=== PATIENT | male | born 1940 | race Two or more races ===

== ENCOUNTER 2019-03-11 08:50 | Inpatient (IN) | payer MEDICARE, OTHER ==
[2019-03-11] VITALS (24 sets, daily range): BP systolic 79–136; BP diastolic 45–67
[~2019-03-11] VITALS: Ht 162.6 cm; Wt 66.9 kg
[2019-03-11 09:52] LABS: Basophils # (auto) 0.1 uL; Basophils % (auto) 0.6 % (0.0-2.0); Eosinophils # (auto) 0 uL; Eosinophils % (auto) 0.2 % (0.0-7.0); Hematocrit 40.2 % (41.0-53.0); Hemoglobin 13.8 g/dL (13.5-17.5); Lymphocytes # (auto) 1.6 uL; Lymphocytes % (auto) 15.3 % (10.0-50.0); Mean Corpuscular Hemoglobin 31.9 pg (28.0-32.0); Mean Corpuscular Hgb Conc. 34.3 g/dL (32.0-36.0); Monocytes # (auto) 0.8 uL; Monocytes % (auto) 7.1 % (0.0-12.0); Neutrophils # (auto) 8.2 uL; Neutrophils % (auto) 76.8 % (37.0-80.0); Nucleated Red Blood Cells % 0.1 %; Platelet Count (auto) 176 10^3/uL (140-450); Red Blood Cells 4.32 10^6/uL (4.5-5.90); Red Cell Distribution Width 15.7 % (11.8-14.3); White Blood Cell 10.6 10^3/uL (4.4-10.8)
[2019-03-11 10:11] LABS: BUN/Creatinine Ratio 15.5; Calcium 8.9 mg/dL (8.5-10.1)
[2019-03-11 10:15] LABS: Bilirubin, Total 2.6 mg/dL (0.2-1.0); Total Protein 8.9 g/dL (6.4-8.2)
[2019-03-11 10:48] LABS: INR 1.02 (0.9-1.15); Partial Thromboplastin Time 28.4 sec (23.64-32.05)
[2019-03-11] MEDS ORDERED: ASPirin 81 mg TAB PO ONE (12:15)
[2019-03-11] MEDS ORDERED: ENOXAPARIN SOD 80 MG/0.8ML SYRINGE SC ONE (12:15)
[2019-03-11] MEDS ORDERED: cefTRIAXone 1GM/50ML D5W 50 ML IV ONE (13:30)
[2019-03-11 14:07] LABS: Lactic Acid w/Reflex 2.4 mmol/L (0.4-2.0)
[2019-03-11] MEDS ORDERED: ONDANSETRON HCL 4 MG/2 ML VIAL IV PRN (14:15)
[2019-03-11] MEDS ORDERED: MORPHINE SULF INJ 2 MG/ML SYRINGE 1ML IV PRN (14:15)
[2019-03-11] MEDS ORDERED: HYDROcodone-ACET 5/325MG TAB PO PRN (14:15)
[2019-03-11] MEDS ORDERED: ACETAMINOPHEN 500 MG TAB PO PRN (14:15)
[2019-03-11] MEDS ORDERED: NITROGLYCERIN 0.4 MG SL TAB SL PRN (14:15)
[2019-03-11] MEDS ORDERED: MORPHINE SULF INJ 2 MG/ML SYRINGE 1ML IV ONE (14:15)
[2019-03-11] MEDS ORDERED: DEXTROSE (50%) 50ML SYRG IV PRN ×2 (14:15)
[2019-03-11 14:34] LABS: CRP High Sensitivity 10.2 mg/dL (< 0.3)
[2019-03-11] MEDS ORDERED: ETOMIDATE (2MG/ML) 20ML VIAL IV ONE ×2 (15:04→15:30)
[2019-03-11] MEDS ORDERED: SUCCINYLCHOLINE CHLORIDE 20 MG/ML 10ML VIAL IV ONE ×2 (15:04→15:30)
[2019-03-11] MEDS ORDERED: MIDAZOLAM DRIP 50 mg/50mL 50 ML IV ONE (15:05)
[2019-03-11] MEDS: MIDAZOLAM DRIP 50 mg/50mL 50 ML IV SCH ×2 (15:20→22:58)
[2019-03-11] MEDS: fentaNYL Drip 2500mCg/250mlNS 250 ML IV SCH (15:21)
[2019-03-11] MEDS: PROPOFOL 100 ML IV SCH (15:21)
[2019-03-11] MEDS ORDERED: SODIUM CHLORIDE 0.9% 2,000 ML IV ONE (15:30)
[2019-03-11] MEDS ORDERED: InsuLIN REG 1unit/0.01ml Soln (100units/ml) SC SCH (17:00)
[2019-03-11] MEDS ORDERED: ACCU-CHEK COMFORT CURVE STRIP VI SCH (17:00)
[2019-03-11] MEDS: PIPERACILLIN-TAZOB 3.375GM 100 ML IV SCH (18:00)
[2019-03-11] MEDS: InsuLIN REG 1unit/0.01ml Soln (100units/ml) SC SCH ×2 (18:01→22:00)
[2019-03-11] MEDS: ACCU-CHEK COMFORT CURVE STRIP VI SCH ×2 (18:08→22:00)
[2019-03-11] MEDS: ALBUTEROL SULF 2.5 MG/0.5ML(0.5%) NEB SOLN NEB SCH ×2 (18:20→22:04)
[2019-03-11] MEDS: IPRATROPIUM BROM 0.5 MG/2.5ML INH SOL NEB SCH ×2 (18:20→22:04)
--- NOTE | 2019-03-11 18:35 | NUR ---
Admit to ICU from ER on vent MARIANNE SOTO admitted to ICU via gurney on monitoring coordinator, intubated and being bagged by Respiratory Therapist. Patient transferred to bed, connected to mechanical ventilator by therapist, RJ at bedside. Patient connected to ICU monitoring, weighed by bedscale, oriented to Daniela Jackman primary RN, unit, ventilator and sedation.
--- NOTE | 2019-03-11 18:40 | NUR ---
UNPLANNED LEFT UPPER CHEST CENTRAL LINE D/C. MANUAL PRESSURE HELD. VITALS STABLE. NO SIGNS OF DISTRESS. VERSED GTT PLACEDD ON PERIPHERAL LINE. MONTY MAZARIEGOS NOTIFIED OF EVENT. MD WILL ROUND AT BEDSIDE.
--- NOTE | 2019-03-11 18:40 | NUR ---
PT WAS TRANSFERRED TO ICU 108. PT BAGGED DURING TRANSPORT AND PLACED BACK ON VENT V4 WITH SAME SETTINGS ONCE PT WAS IN ICU BED. PT WAS TRANSPORTED WITHOUT ANY ISSUES TO ETT OR RESPIRATORY STATUS.
--- NOTE | 2019-03-11 18:45 | NUR ---
IV insertion IV access obtained, via clean sterile technique by inserting 22 gauge catheter at left hand after 1 attempt(s). IV secured properly. No trauma to site. Patient tolerated well.
--- NOTE | 2019-03-11 18:50 | NUR ---
IV insertion IV access obtained, via clean sterile technique by inserting 22 gauge catheter at right hand after 1 attempt(s). IV secured properly. No trauma to site. Patient tolerated well.
--- NOTE | 2019-03-11 19:25 | NUR ---
MD VISIT Alvino MAZARIEGOS at bedside for central line placement.
[2019-03-11] MEDS ORDERED: NOREPINEPHRINE 8 MG/250ML KIT 250 ML IV ONE (19:30)
[2019-03-11] MEDS: NOREPINEPHRINE 8 MG/250ML KIT 250 ML IV SCH (19:30)
--- NOTE | 2019-03-11 19:30 | NUR ---
MONTY COIL WINDER AT BEDSIDE, PLACING CENTRAL LINE TO RIGHT FEMORAL AREA.
--- NOTE | 2019-03-11 19:30 | NUR ---
REPORT Report given to Gissel OROPEZA, care endorsed.
--- NOTE | 2019-03-11 19:45 | NUR ---
SBP 80'S, LEVOPHED STARTED AT 3 MCG/MIN. PER ORDERS. WILL CONTINUE TO MONITOR
--- NOTE | 2019-03-11 20:00 | NUR ---
ASSESSMENT: SEDATED ON VERSED, VENTILATED ON AC/12, TV 500, PEEP +5, FIO2 30%, SATS 100%. LUNGS CLEAR. ETT 8 FR., 23 AT LIP LINE. ETT SUCTION, WITH SMALL AMT. OF THICK, YELLOW SECRETIONS. CARDIAC, - HR 90'S, WITH QUAD MICHELLE PVC'S. ABDOMEN - SOFT AND ROUND, HYPOACTIVE B.S, NO BM AT THIS TIME. DAWSON TO DD WITH SONIA, CLEAR URINE. SKIN INTACT. IV'S #22 LH, #20 LAC, #22 RH, ALL INTACT. RIGHT FEMORAL IN PLACE.
[2019-03-11] MEDS: SODIUM CHLORIDE 0.9% 1,000 ML IV SCH (22:13)
[2019-03-12] VITALS (97 sets, daily range): BP systolic 83–144; BP diastolic 49–72
[2019-03-12] MEDS: SODIUM CHLORIDE 0.9% 1,000 ML IV SCH ×3 (00:15→20:15)
[2019-03-12] MEDS: PIPERACILLIN-TAZOB 3.375GM 100 ML IV SCH ×4 (00:17→17:50)
[2019-03-12] MEDS: IPRATROPIUM BROM 0.5 MG/2.5ML INH SOL NEB SCH ×6 (02:12→22:51)
[2019-03-12] MEDS: ALBUTEROL SULF 2.5 MG/0.5ML(0.5%) NEB SOLN NEB SCH ×6 (02:12→22:51)
--- NOTE | 2019-03-12 02:13 | NUR ---
SEDATION ON HOLD, PT. WAKES UP AND FOLLOWS COMMANDS, MOVES ALL EXTREMITIES.
--- NOTE | 2019-03-12 03:17 | NUR ---
BLOOD CULTURES - CALL RECEIVED FROM LAB REGARDING (+) BLOOD CULTURES GM. NEGATIVE RODS. WILL NOTIFY PHYSICIAN. PT. ON PIPERACILLIN Q8R
[2019-03-12 04:03] LABS: Basophils # (auto) 0 uL; Basophils % (auto) 0.2 % (0.0-2.0); Eosinophils # (auto) 0 uL; Eosinophils % (auto) 0.3 % (0.0-7.0); Hematocrit 31.8 % (41.0-53.0); Hemoglobin 11.3 g/dL (13.5-17.5); Lymphocytes # (auto) 1.4 uL; Lymphocytes % (auto) 15.4 % (10.0-50.0); Mean Corpuscular Hemoglobin 32.4 pg (28.0-32.0); Mean Corpuscular Hgb Conc. 35.7 g/dL (32.0-36.0); Mean Corpuscular Volume 90.7 fL (80.0-100.0); Monocytes # (auto) 0.8 uL; Monocytes % (auto) 8.8 % (0.0-12.0); Neutrophils # (auto) 6.9 uL; Neutrophils % (auto) 75.3 % (37.0-80.0); Platelet Count (auto) 127 10^3/uL (140-450); Red Blood Cells 3.51 10^6/uL (4.5-5.90); Red Cell Distribution Width 15.7 % (11.8-14.3); White Blood Cell 9.2 10^3/uL (4.4-10.8)
[2019-03-12 04:11] LABS: INR 1.15 (0.9-1.15); Partial Thromboplastin Time 34.7 sec (23.64-32.05)
[2019-03-12 04:25] LABS: Calcium 7.8 mg/dL (8.5-10.1); Potassium 3.7 mmol/L (3.5-5.1)
[2019-03-12 04:27] LABS: BUN/Creatinine Ratio 16.7
--- NOTE | 2019-03-12 06:00 | NUR ---
LARGE AMT. OF BLOODY ORAL SECRETIONS.
[2019-03-12] MEDS ORDERED: ATEN-60 PO (06:13)
[2019-03-12] MEDS ORDERED: ATOR20TA50 PO (06:13)
[2019-03-12] MEDS ORDERED: ACET30TA15 PO (06:13)
[2019-03-12] MEDS ORDERED: IBUP200C3 PO (06:13)
[2019-03-12] MEDS: ACCU-CHEK COMFORT CURVE STRIP VI SCH ×4 (07:05→21:53)
[2019-03-12] MEDS: InsuLIN REG 1unit/0.01ml Soln (100units/ml) SC SCH ×4 (07:05→21:53)
[2019-03-12] MEDS: MIDAZOLAM DRIP 50 mg/50mL 50 ML IV SCH ×3 (07:40→21:54)
--- NOTE | 2019-03-12 08:09 | NUR ---
SPOKE WITH DR MILLER NEW ORDERS RECEIVED
--- NOTE | 2019-03-12 09:20 | NUR ---
SPOKE WITH PATIENTS DAUGHTER FREEDOM ([phone]), PROVIDED PASSWORD. UPDATED ON CURRENT STATUS AND PLAN OF CARE
[2019-03-12 09:35] LABS: BUN/Creatinine Ratio 17.8; Potassium 3.6 mmol/L (3.5-5.1)
--- NOTE | 2019-03-12 09:36 | NUR ---
PEDIATRIC UROLOGIST AT BEDSIDE
--- NOTE | 2019-03-12 09:45 | NUR ---
PATIENTS AT BEDSIDE UPDATED ON CURRENT STATUS AND PLAN OF CARE
[2019-03-12 09:49] LABS: Bilirubin, Total 1.6 mg/dL (0.2-1.0); Total Protein 6.6 g/dL (6.4-8.2)
[2019-03-12] MEDS: ASPirin-EC 81 mg tab PO SCH (10:00)
[2019-03-12] MEDS ORDERED: LISINOPRIL 10 MG TAB PO SCH (10:00)
[2019-03-12] MEDS ORDERED: PANTOPRAZOLE 40 MG/10 ML VIAL INJ IV ONE (13:30)
[2019-03-12] MEDS ORDERED: IOHEXOL 350 MG/ML 100ML IJ ONE ×2 (13:52→14:26)
--- NOTE | 2019-03-12 14:00 | NUR ---
DR ROBLES AT BEDSIDE DISCUSSED PLAN OF CARE WITH PATIENTS , NEW ORDERS PLACED
--- NOTE | 2019-03-12 14:25 | NUR ---
RT Transport Note: Patient transported to {CT} with RN {KERVIN BRADFORD}. Patient transported to and from procedure on ventilator with previous ordered settings. Patient on desk monitor with alarms set and audible, ambu-bag/mask connected to 02 tank. Patient returned to room with no adverse reaction noted. Transport completed without incident.
--- NOTE | 2019-03-12 14:36 | NUR ---
PATIENT TRANSPORTED TO RADIOLOGY WITH SPECIAL SERVICES DIRECTOR, SOLE MOLDING MACHINE OPERATOR AND RESPIRATORY THERAPIST. PATIENT STABLE AT TIME OF TRANSPORT, ON VERSED DRIP.
--- NOTE | 2019-03-12 14:58 | NUR ---
PATIENT RETURNED FROM RADIOLOGY WITH TRANSPORT TEAM RECONNECTED TO BEDSIDE MONITORS, VERSED INCREASED PATIENT BENDING LEGS AND TRYING TO SIT UP. WILL CONTINUE TO MONITOR CLOSELY
[2019-03-12] MEDS: fentaNYL Drip 2500mCg/250mlNS 250 ML IV SCH ×2 (15:21→18:48)
[2019-03-12] MEDS: PROPOFOL 100 ML IV SCH (15:21)
[2019-03-12] MEDS: NOREPINEPHRINE 8 MG/250ML KIT 250 ML IV SCH (19:30)
--- NOTE | 2019-03-12 20:00 | NUR ---
OPEN ASSUMED CARE OF MALE PT ORALLY INTUBATED. PT SEDATED ON VERSED GTT 15 MG/HR, AND FENTANYL GTT 50 MCG/HR. PT GRIMACES TO TACTILE STIMULI/ OTHERWISE NON RESPONSIVE. PT WITH PROSTHETIC L. EYE. R. EYE PUPIL 2 MM AND SLUGGISHLY REACTIVE. SR ON SLASHER WITH PVC'S OBSERVED. OGT IN PLACE CLAMPED. PLACEMENT VERIFIED. R. TLC IN PLACE. ALL PORTS PATENT. DRESSING CDI. DAWSON TO GRAVITY DRAINING CLEAR YELLOW URINE. PATT SCD'S IN PLACE. SKIN INTACT. NO INDICATION OF PAIN OBSERVED. BED IN LOWEST LOCKED POSITION. SIDE RAILS UP X 2. HOB ELEVATED 30 DEGREES. PT IN FULL VIEW OF RN STATION. WILL CONTINUE TO MONITOR.
--- NOTE | 2019-03-12 20:23 | NUR ---
FAMILY VISIT PT DAUGHTER AND SON IN LAW TO UNIT FOR VISIT. UPDATED REGARDING PLAN OF CARE AND PT CONDITION.
--- NOTE | 2019-03-12 20:43 | NUR ---
HIPPA/FAMILY EDUCATION PT SON IN LAW OBSERVED TO BE TAKING PICTURES OF PT WITH CELL PHONE. EDUCATED PT'S DAUGHTER AND SON IN LAW REGARDING PRIVACY RULES FOR PT'S. ASKED FAMILY TO NOT TAKE PICTURES OF PT PT UNABLE TO CONSENT. FAMILY VERBALIZES UNDERSTANDING.
[2019-03-13] VITALS (99 sets, daily range): BP systolic 90–151; BP diastolic 48–70
[2019-03-13] MEDS: PIPERACILLIN-TAZOB 3.375GM 100 ML IV SCH ×5 (00:20→23:37)
[2019-03-13] MEDS: fentaNYL Drip 2500mCg/250mlNS 250 ML IV SCH (01:20)
[2019-03-13] MEDS: IPRATROPIUM BROM 0.5 MG/2.5ML INH SOL NEB SCH ×6 (02:29→22:54)
[2019-03-13] MEDS: ALBUTEROL SULF 2.5 MG/0.5ML(0.5%) NEB SOLN NEB SCH ×6 (02:29→22:55)
[2019-03-13] MEDS: MIDAZOLAM DRIP 50 mg/50mL 50 ML IV SCH ×3 (02:36→18:11)
--- NOTE | 2019-03-13 04:00 | NUR ---
Patient bathe/linen change Patient given complete bath. Skin integrity assessed for any changes. Linens changed. Patient repositioned for comfort.
[2019-03-13 04:48] LABS: Basophils # (auto) 0.1 uL; Basophils % (auto) 1.3 % (0.0-2.0); Eosinophils # (auto) 0.1 uL; Eosinophils % (auto) 1.1 % (0.0-7.0); Hematocrit 29.3 % (41.0-53.0); Hemoglobin 10.1 g/dL (13.5-17.5); Lymphocytes # (auto) 0.7 uL; Lymphocytes % (auto) 13.6 % (10.0-50.0); Mean Corpuscular Hemoglobin 31.7 pg (28.0-32.0); Mean Corpuscular Hgb Conc. 34.6 g/dL (32.0-36.0); Mean Corpuscular Volume 91.6 fL (80.0-100.0); Monocytes # (auto) 0.4 uL; Monocytes % (auto) 8.3 % (0.0-12.0); Neutrophils # (auto) 3.9 uL; Neutrophils % (auto) 75.7 % (37.0-80.0); Nucleated Red Blood Cells % 0.1 %; Platelet Count (auto) 122 10^3/uL (140-450); Red Cell Distribution Width 15.6 % (11.8-14.3); White Blood Cell 5.1 10^3/uL (4.4-10.8)
[2019-03-13 05:06] LABS: Albumin 1.9 g/dL (3.4-5.0)
[2019-03-13 05:12] LABS: BUN/Creatinine Ratio 17.9; Bilirubin, Total 1.1 mg/dL (0.2-1.0); Magnesium 2.3 mg/dL (1.6-2.6); Total Protein 6.3 g/dL (6.4-8.2)
[2019-03-13] MEDS: ACCU-CHEK COMFORT CURVE STRIP VI SCH ×4 (05:43→21:33)
[2019-03-13] MEDS: InsuLIN REG 1unit/0.01ml Soln (100units/ml) SC SCH ×4 (05:44→21:32)
[2019-03-13] MEDS: SODIUM CHLORIDE 0.9% 1,000 ML IV SCH ×2 (06:15→16:34)
--- NOTE | 2019-03-13 07:45 | NUR ---
OPEN Report received from Alexsandra OROPEZA. Care initiated and initial assessment completed at this time. Patient is in bed in the lowest position with the call maldonado within reach. Patient is intubated on the ventilator. Patients vital signs are stable at this time. See physical assessment in chart.
--- NOTE | 2019-03-13 08:05 | NUR ---
BEDSIDE Dr. June Velazquez bedside. New orders/consults received.
--- NOTE | 2019-03-13 08:20 | NUR ---
SPOKE TO RADIOLOGY Spoke to Tiana in Radiology in regards to possible biliary drain insertion by Dr. Duncan.
--- NOTE | 2019-03-13 08:45 | NUR ---
FAMILY PHONE CALL Updated family member with password verified. Updated on patients status. Family will be in to visit today.
--- NOTE | 2019-03-13 08:50 | NUR ---
FAMILY PHONE CALL Family called for update. Password verified. Family updated on patients status.
--- NOTE | 2019-03-13 09:00 | NUR ---
FAMILY BEDSIDE Family updated on patients status at this time. Family is requesting to have patient transferred due to location. All questions and concerns addressed at this time.
--- NOTE | 2019-03-13 09:15 | NUR ---
BEDSIDE Spoke to Dr. Bullard at the bedside. Dr. Bullard spoke to the family in regards to patients status. Dr. Bullard signing off at this time.
--- NOTE | 2019-03-13 09:35 | NUR ---
BEDSIDE Dr. Nunez bedside. No new orders received at this time.
[2019-03-13] MEDS: PANTOPRAZOLE 40 MG/10 ML VIAL INJ IV SCH (10:00)
[2019-03-13] MEDS: ASPirin-EC 81 mg tab PO SCH (10:22)
--- NOTE | 2019-03-13 10:43 | NUR ---
SPOKE TO MD Spoke to Dr. June Valencia in regards to familys request to have patient transferred to [facility] in [place]. Dr. June Valencia does not approve of transfer due to patient not being stable for transfer at this time.
--- NOTE | 2019-03-13 10:49 | NUR ---
FAMILY UPDATED BEDSIDE Informed the patients , Kristy, that Dr. Valencia does not approve transfer at this time. Family expressed understanding.
--- NOTE | 2019-03-13 11:30 | NUR ---
SPOKE TO ABOUT APPROVED TRANSFER Dr. Valencia approves of transfer at this time after conference with Dr. Nunez. New orders received.
--- NOTE | 2019-03-13 11:40 | NUR ---
WOUND CARE NOTE: Wound care team to see patient due to low Reno score and intubation. Patient is a 79 yo male admitted for chest pain. Patient with a history of diabetes, hypertension, kidney stones, liver disease and hyperlipidemia. Patient is currently intubated and sedated. Last Reno score is 12. Patient seen with bedside RN, Gabriela. Patient repositioned and skin assessed. No pressure injuries or open wounds noted. RECOMMENDATIONS: Dietary consult; Turn q2hrs; Nursing to cleanse buttocks with mild soap and water, pat dry, apply ZGUARD BID/PRN, may apply sacral OPTIFOAM to prevent friction/shear, change q3d/PRN soiling; wound care team to follow.
--- NOTE | 2019-03-13 13:25 | NUR ---
SPOKE TO CASE MANAGEMENT Natividad from case management called for clarification on transfer orders.
--- NOTE | 2019-03-13 13:30 | NUR ---
BEDSIDE Dr. Duncan bedside to complete procedure.
--- NOTE | 2019-03-13 13:30 | NUR ---
I called [facility] [phone] and left message for admitting to ask about bed availability and also their transfer process.
--- NOTE | 2019-03-13 13:48 | NUR ---
PROCEDURE COMPLETE Dr. Duncan complete at the bedside.
[2019-03-13] MEDS: PROPOFOL 100 ML IV SCH (15:21)
--- NOTE | 2019-03-13 15:25 | NUR ---
I called [facility] [phone] and spoke with powerhouse helper Suly, she said they have no ICU beds available at this time and will not have any available before tomorrow.
--- NOTE | 2019-03-13 15:29 | NUR ---
I spoke with patient's Kristy to let her know that [facility] in [place] has no ICU beds available at this time, I also let Dr. Connie Valencia know as well as ICU nurse.
--- NOTE | 2019-03-13 15:30 | NUR ---
SPOKE TO CASE MANAGEMENT LINDA Spoke to Linda Garcia in case management, she informed me that [facility] in [place] does not have a bed at this time.
--- NOTE | 2019-03-13 15:45 | NUR ---
BEDSIDE Dr. Castro bedside. New orders received.
--- NOTE | 2019-03-13 19:00 | NUR ---
Opening notes Assumed care, laying on bed with his eyes closed, still on vent, AC mode, right femoral vein infusing versed 2 15 mg/hr and fentanyl @ 50 mcg/hr, PIV's patent and intact, OGT in place, apple catheter draining to a light dashawn urine. Bed in lowest position with side rails up, bed alarm on. Will continue care.
--- NOTE | 2019-03-13 19:08 | NUR ---
CLOSING Report given to Amber OROPEZA.
[2019-03-13] MEDS: NOREPINEPHRINE 8 MG/250ML KIT 250 ML IV SCH (19:30)
--- NOTE | 2019-03-13 22:15 | NUR ---
Family updated on pt status Daughter (Courtney) of MARIANNE SOTO updated on patient's status and condition after obtaining a password. All questions and concerns addressed, verbalized understanding.
[2019-03-14] VITALS (92 sets, daily range): BP systolic 124–174; BP diastolic 55–78
--- NOTE | 2019-03-14 00:34 | NUR ---
Started to move upper and lower extremities slowly, eyes still not wide open, biting ET tube. RT informed.
--- NOTE | 2019-03-14 00:40 | NUR ---
Constance Rt at bedside, primary RN and CN assisting the RT, bite block placed by RT. No distress noted.
--- NOTE | 2019-03-14 03:00 | NUR ---
Patient bathe/linen change Patient given complete bath. Skin integrity assessed for any changes. Linens changed. Patient repositioned for comfort.
[2019-03-14] MEDS: IPRATROPIUM BROM 0.5 MG/2.5ML INH SOL NEB SCH ×6 (03:13→22:22)
[2019-03-14] MEDS: ALBUTEROL SULF 2.5 MG/0.5ML(0.5%) NEB SOLN NEB SCH ×6 (03:13→22:22)
[2019-03-14 03:56] LABS: Basophils # (auto) 0 uL; Basophils % (auto) 0.2 % (0.0-2.0); Eosinophils # (auto) 0.1 uL; Eosinophils % (auto) 1.5 % (0.0-7.0); Hematocrit 32.2 % (41.0-53.0); Lymphocytes # (auto) 1.1 uL; Lymphocytes % (auto) 22.2 % (10.0-50.0); Mean Corpuscular Hemoglobin 31.8 pg (28.0-32.0); Mean Corpuscular Hgb Conc. 34.1 g/dL (32.0-36.0); Mean Corpuscular Volume 93.4 fL (80.0-100.0); Monocytes # (auto) 0.5 uL; Neutrophils # (auto) 3.2 uL; Neutrophils % (auto) 66.1 % (37.0-80.0); Platelet Count (auto) 138 10^3/uL (140-450); Red Blood Cells 3.44 10^6/uL (4.5-5.90); White Blood Cell 4.9 10^3/uL (4.4-10.8)
--- NOTE | 2019-03-14 04:00 | NUR ---
Off versed, BP 145/92, T 98.8, HR 99, R 19.
[2019-03-14 04:57] LABS: Calcium 8.6 mg/dL (8.5-10.1); Potassium 4.1 mmol/L (3.5-5.1)
[2019-03-14 04:59] LABS: BUN/Creatinine Ratio 17.9; Total Protein 6.9 g/dL (6.4-8.2)
[2019-03-14] MEDS: PIPERACILLIN-TAZOB 3.375GM 100 ML IV SCH (05:19)
[2019-03-14] MEDS: InsuLIN REG 1unit/0.01ml Soln (100units/ml) SC SCH ×4 (05:20→21:26)
[2019-03-14] MEDS: ACCU-CHEK COMFORT CURVE STRIP VI SCH ×4 (05:20→21:26)
--- NOTE | 2019-03-14 06:46 | NUR ---
Status update Opens eyes spontaneously, able to follow simple commands, able to nod and shake his head, moves upper and lower extremities when told., fentanyl @ 20 mcg/hr.
--- NOTE | 2019-03-14 07:30 | NUR ---
OPEN Received report from Amber OROPEZA. Care initiated and initial assessment completed. Patient is in bed in the lowest position with call light within reach. Patient is intubated with ventilator bedside. Vital signs are stable at this time. See chart for physical assessment.
--- NOTE | 2019-03-14 08:00 | NUR ---
BEDSIDE Dr. June Valencia bedside. New orders received.
--- NOTE | 2019-03-14 09:00 | NUR ---
SPOKE TO DR LIMA Spoke to Dr. Lima, updated on patients ABG. No new orders at this time.
[2019-03-14] MEDS: cefTRIAXone 1GM/50ML D5W 50 ML IV SCH (09:35)
[2019-03-14] MEDS: metroNIDAZOLE 500MG/100ML 100 ML IV SCH ×3 (09:35→21:25)
[2019-03-14] MEDS: ASPirin-EC 81 mg tab PO SCH (09:36)
[2019-03-14] MEDS: PANTOPRAZOLE 40 MG/10 ML VIAL INJ IV SCH (09:36)
--- NOTE | 2019-03-14 10:00 | NUR ---
FAMILY BEDSIDE Updated patients daughter, Courtney, on patients status. All questions and concerns addressed at this time.
--- NOTE | 2019-03-14 10:40 | NUR ---
FAMILY BEDSIDE Updated patients daughter, Teri, on patients status. All questions and concerns addressed at this time.
--- NOTE | 2019-03-14 11:00 | NUR ---
FOLLOWING COMMANDS Patient is following commands at this point. Able to track with his eyes, wiggle his toes, and squeeze with his hands.
--- NOTE | 2019-03-14 11:48 | NUR ---
NUTRITION CONSULT/ASSESSMENT NOTES Please refer to link notes of nutrition screen form filed under the intervention section of the plan of care for further details. Est. Needs: 1650 kcal to 1950 kcal (25-30 kcal/kgBW), 65 gms to 78 gms pro (1.0-1.2 gms/kgBW). Will continue to monitor pertinent labs and reassess nutrient need prn Thank you for this consult. Addendum: 03/14/19 at [address] Amended: Links added.
[2019-03-14] MEDS: SODIUM CHLORIDE 0.9% 1,000 ML IV SCH ×2 (12:15→22:15)
--- NOTE | 2019-03-14 13:25 | NUR ---
BEDSIDE Dr. Lima bedside. CPAP trial approved. New orders received.
--- NOTE | 2019-03-14 13:35 | NUR ---
RT NOTE: LEAK TEST DONE PER MD AMELIA REQUEST. POSITIVE RESULTS. WAITING FOR MD RETURN TO ICU FOR FURTHER ORDERS.
--- NOTE | 2019-03-14 13:51 | NUR ---
RT NOTE: PLACED ONTO CPAP WITH PS 8 AND PEEP 5. WILL RETURN IN ABOUT 1HR FOR ABG AND POSSIBLE EXTUBATION.
--- NOTE | 2019-03-14 13:55 | NUR ---
CPAP TRIAL Patient is on CPAP trial at this time. No distress noted. Patient is tolerating well. Awaiting time period for labs.
--- NOTE | 2019-03-14 14:04 | NUR ---
I called [facility] [phone] extension [phone] and spoke with Jen in Case Management-she said they have no ICU beds available but to fax face sheet and clinical information to [phone]-she will look over it and give me a call back.
--- NOTE | 2019-03-14 15:11 | NUR ---
PAGED DR CISNEROS REGARDING ABG RESULTS , OMAR ADAMS RN AT LUNCH AWAITING CALL BACK
--- NOTE | 2019-03-14 15:19 | NUR ---
I received a call from Jen at [facility] letting me know that they are declining this transfer request because there is nothing that they would do differently than we are doing here. I called ICU and spoke with charge nurse-made her aware-I also spoke with patient's Kristy to let her know-provided her with my contact information in case she has any more questions. Addendum: 03/14/19 at 1522 by Natividad Garcia RN Patient's Kristy [phone].
[2019-03-14] MEDS: fentaNYL Drip 2500mCg/250mlNS 250 ML IV SCH (15:21)
[2019-03-14] MEDS: PROPOFOL 100 ML IV SCH (15:21)
--- NOTE | 2019-03-14 15:35 | NUR ---
RT NOTE: PER MD CISNEROS ORDERS, PT EXTUBATED WITH RN AND FAMILY BEDSIDE. PT PLACED ONTO 40% COOL AEROSOL. NO STRIDOR NOTED. LUNG SOUNDS COARSE T/O BUT PT HAS STRONG PRODUCTIVE COUGH. NO SIGNS OF DISTRESS NOTED AT THIS TIME. VENT IS STILL ON STAND BY FOR THE NEXT HOUR. WILL CONTINUE TO MONITOR.
--- NOTE | 2019-03-14 15:35 | NUR ---
EXTUBATED Respiratory therapist has extubated patient. Patient is tolerating well. No distress or stridor noted. Patient is attached to mask with breathing treatment running.
--- NOTE | 2019-03-14 16:42 | NUR ---
ASSESSMENT Patient post-extubation, tolerating well, no distress. Cool mask running. No stridor. Lung esposito clear bilaterally.
--- NOTE | 2019-03-14 19:09 | NUR ---
Respiratory note: AT BEDSIDE FOR MED AIDA JARRETT.
--- NOTE | 2019-03-14 19:20 | NUR ---
OPENING SHIFT NOTE ASSUMED CARE OF PT IN BED, ALERT AND ORIENTED X4, TALKING IN NORMAL TONES. PT ST 104 ON CARDICAC MONITOR. PULSES PRESENT X4 EXTREMITIES. RESPIRATIONS EVEN AND UNLABORED, SPONTANEOUS EXPECTORATION OF THICK CLEAR MUCUS, WITH SUCTION AT BEDSIDE. 02 SAT 94% ON 2L NC. ABD SOFT AND NON TENDER, BOWEL SOUNDS HYPOACTIVE. RUQ DRAIN, DRAINING BROWN FLUID TO BAG, INSERTION SITE CDI. LAC 20G RUNNING NS AT 100ML/HR. L/R HAND 22 G'S SALINE FLUSHED AND LOCKED. RIGHT GROIN 3L SALINE FLUSHED. SKIN INTACT WITH BONY PROMINENCES OFF LOADED WITH PILLOWS. CALL LIGHT WITHIN REACH AND EDUCATED ON USE. BED IN LOWEST LOCKED POSITION. NO PAIN OR DISTRESS NOTED. IN FULL VIEW OF NURSES STATION. WILL CONINUE TO MONITOR.
--- NOTE | 2019-03-14 19:22 | NUR ---
Respiratory note: PLACED PT ON 2LPM NC. PT TOLERATING WELL. WILL CONTINUE TO MONITOR. ASSISTED PT WITH ORAL SX.
--- NOTE | 2019-03-14 20:07 | NUR ---
FAMILY AT BEDSIDE UPDATED ON PATIENT STATUS, ALL QUESTIONS AND CONCERNS ADDRESSED AT THIS TIME. VERBALIZED UNDERSTANDING.
--- NOTE | 2019-03-14 22:22 | NUR ---
Respiratory note: AT BEDSIDE FOR MED AIDA JARRETT.
--- NOTE | 2019-03-14 22:48 | NUR ---
REPORT GIVEN TO CATHIE OROPEZA. PT BEING DOWNGRADED TO TELEMETRY, TO GO TO ROOM 277A.
--- NOTE | 2019-03-14 23:15 | NUR ---
PT TRANSFERRED TO TELE 277A ROOM 277A, VIA BED. ON YEAST DISTILLER, 2LNC. TRANSFERRED BY CHARGE NURSE AND CHUCK WAGON COOK.
--- NOTE | 2019-03-14 23:18 | NUR ---
ICU patient trans to floor SBAR faxed and confirmed receipt by . [facility] traffic monitor specialist #[id number] ST 110s and portable 02. Placed pt on O2 2lNC. All patient medications and personal belongings transfered with patient to receiving floor. patient has apple draining clear yellow urine to gravity, biliary accordian drain on RLQ abdomen draining dark green drainage, Triple lumen catheter patent and intact. Patient care transfered to this nurse Muhammad. NOTE:
[2019-03-14] MEDS: MORPHINE SULF INJ 2 MG/ML SYRINGE 1ML IV PRN (23:39)
[2019-03-15] VITALS: BP 137/68
[2019-03-15] MEDS: IPRATROPIUM BROM 0.5 MG/2.5ML INH SOL NEB SCH ×6 (02:23→22:09)
[2019-03-15] MEDS: ALBUTEROL SULF 2.5 MG/0.5ML(0.5%) NEB SOLN NEB SCH ×6 (02:23→22:10)
[2019-03-15] MEDS: metroNIDAZOLE 500MG/100ML 100 ML IV SCH ×3 (05:06→21:44)
[2019-03-15] MEDS: ACCU-CHEK COMFORT CURVE STRIP VI SCH ×4 (05:07→21:44)
[2019-03-15] MEDS: InsuLIN REG 1unit/0.01ml Soln (100units/ml) SC SCH ×4 (05:13→21:44)
[2019-03-15 05:23] VITALS: BP 133/78
[2019-03-15 06:13] LABS: Basophils # (auto) 0 uL; Basophils % (auto) 0.7 % (0.0-2.0); Eosinophils # (auto) 0.1 uL; Eosinophils % (auto) 1.1 % (0.0-7.0); Hematocrit 32.8 % (41.0-53.0); Hemoglobin 11.3 g/dL (13.5-17.5); Lymphocytes # (auto) 1.4 uL; Lymphocytes % (auto) 20.3 % (10.0-50.0); Mean Corpuscular Hemoglobin 31.9 pg (28.0-32.0); Mean Corpuscular Hgb Conc. 34.5 g/dL (32.0-36.0); Mean Corpuscular Volume 92.4 fL (80.0-100.0); Monocytes # (auto) 0.6 uL; Monocytes % (auto) 8.5 % (0.0-12.0); Neutrophils # (auto) 4.7 uL; Neutrophils % (auto) 69.4 % (37.0-80.0); Nucleated Red Blood Cells % 0.1 %; Platelet Count (auto) 158 10^3/uL (140-450); Red Blood Cells 3.55 10^6/uL (4.5-5.90); Red Cell Distribution Width 15.3 % (11.8-14.3); White Blood Cell 6.8 10^3/uL (4.4-10.8)
[2019-03-15 06:48] LABS: Albumin 2.2 g/dL (3.4-5.0); BUN/Creatinine Ratio 23.4; Calcium 8.6 mg/dL (8.5-10.1)
--- NOTE | 2019-03-15 08:45 | NUR ---
OPENING SHIFT NOTE ASSUMED CARE OF PATIENT. PATIENT IS AWAKE AND ALERT. NO SOB OR SIGNS OF DISTRESS NOTED. FAMILY MEMBERS AT BEDSIDE. INSTRUCTED ON POC AND TO CALL FOR ASSISTANCE PRN. BED IN LOWEST POSITION WITH SIDE RAILS UP X2. WILL CONTINUE TO MONITOR.
[2019-03-15 08:58] VITALS: BP 139/71
[2019-03-15] MEDS: cefTRIAXone 1GM/50ML D5W 50 ML IV SCH (09:05)
[2019-03-15] MEDS: SODIUM CHLORIDE 0.9% 1,000 ML IV SCH ×3 (09:05→21:44)
--- NOTE | 2019-03-15 09:20 | NUR ---
DR ROBLES AT BEDSIDE. SPOKE WITH PATIENT AND FAMILY MEMBERS. GAVE ORDERS. WILL CARRY OUT.
--- NOTE | 2019-03-15 10:00 | NUR ---
CALLED BOOK SALESMAN CENTRIFUGE OPERATOR PER DR ROBLES FOR PATIENT TRANSFER. AWAITING CALL BACK.
[2019-03-15] MEDS: PANTOPRAZOLE 40 MG/10 ML VIAL INJ IV SCH (11:02)
[2019-03-15] MEDS: ATORVASTATIN 20 MG TAB PO SCH (11:02)
[2019-03-15] MEDS: ASPirin-EC 81 mg tab PO SCH (11:02)
[2019-03-15] MEDS: ATENOLOL 25 MG TAB PO SCH (11:03)
[2019-03-15 12:46] VITALS: BP 131/66
--- NOTE | 2019-03-15 15:30 | NUR ---
RECEIVED RETURNED CALL FROM DATA DELIVERABLES MANAGER. WAS TOLD [facility] HAD NO BED AVAILABILITY. NOTIFIED PT FAMILY. SPOKE TO DR ROBLES WHO SAID HE WOULD COMMUNICATE WITH DR MILLER AND SPEAK WITH PT FAMILY IN THE MORNING.
[2019-03-15 16:39] VITALS: BP 123/71
--- NOTE | 2019-03-15 19:45 | NUR ---
OPENING SHIFT NOTE RECEIVED REPORT FROM DAYSHIFT RN. PATIENT LYING IN BED WATCHING TELEVISION. NO S/S OF DISTRESS OR SOB. PATIENT DENIES PAIN AT THIS TIME. PATIENT A/O X4, BEDREST. BILIARY DRAIN PRESENT AND DRAINING BROWN FLUID. DAWSON CATHETER PRESENT AND DRAINING CLEAR, STRAW COLORED URINE. TRIPLE LUMEN CENTRAL LINE PRESENT TO RIGHT FEMORAL, NS INFUSING AT 100 MLS/HR. SCD'S PRESENT BILATERALLY. UPDATED PATIENT ON POC, VERBALIZED UNDERSTANDING. BED LOCKED IN LOW POSITION, CALL LIGHT WITHIN REACH. WILL CONTINUE TO MONITOR PATIENT Q1HR AND PRN.
[2019-03-15 22:00] VITALS: BP 135/72
[2019-03-16] MEDS: IPRATROPIUM BROM 0.5 MG/2.5ML INH SOL NEB SCH ×6 (01:49→22:22)
[2019-03-16] MEDS: ALBUTEROL SULF 2.5 MG/0.5ML(0.5%) NEB SOLN NEB SCH ×6 (01:49→22:22)
[2019-03-16 05:04] VITALS: BP 144/77
[2019-03-16] MEDS: metroNIDAZOLE 500MG/100ML 100 ML IV SCH ×3 (05:48→21:18)
[2019-03-16] MEDS: MORPHINE SULF INJ 2 MG/ML SYRINGE 1ML IV PRN (05:48)
[2019-03-16] MEDS: ACCU-CHEK COMFORT CURVE STRIP VI SCH ×4 (06:24→21:18)
[2019-03-16] MEDS: InsuLIN REG 1unit/0.01ml Soln (100units/ml) SC SCH ×4 (06:24→21:18)
--- NOTE | 2019-03-16 06:28 | NUR ---
BILIARY DRAIN OUTPUT 75 MLS OUTPUT OF BROWN DRAINAGE.
[2019-03-16 08:00] VITALS: BP 133/71
--- NOTE | 2019-03-16 08:55 | NUR ---
DR. ROBLES AT BEDSIDE. POC DISCUSSED WITH PT AND FAMILY. PT AND FAMILY VERBALIZED AGREEING WITH POC.
[2019-03-16 09:00] VITALS: BP 133/71
--- NOTE | 2019-03-16 09:55 | NUR ---
CALLED MRI VIA EXT [id number] FOR MRCP ORDER. NO ONE ANSWER THE PHONE, WILL RETRY.
[2019-03-16] MEDS: cefTRIAXone 1GM/50ML D5W 50 ML IV SCH (10:10)
[2019-03-16] MEDS: ASPirin-EC 81 mg tab PO SCH (10:11)
[2019-03-16] MEDS: ATENOLOL 25 MG TAB PO SCH (10:11)
[2019-03-16] MEDS: ATORVASTATIN 20 MG TAB PO SCH (10:12)
[2019-03-16] MEDS: PANTOPRAZOLE 40 MG/10 ML VIAL INJ IV SCH (10:57)
[2019-03-16 13:00] VITALS: BP 128/71
[2019-03-16] MEDS: SODIUM CHLORIDE 0.9% 1,000 ML IV SCH ×2 (14:57→21:19)
[2019-03-16 17:00] VITALS: BP 138/78
--- NOTE | 2019-03-16 18:44 | NUR ---
BILIARY OUTPUT EMPTIED TOTAL OF 350ML DARK BROWN DRAINAGE
[2019-03-16 22:07] VITALS: BP 145/73
--- NOTE | 2019-03-17 02:00 | NUR ---
Received report from Shanna OROPEZA. Assuming role of care of patient at this time. Patient showing no sign of distress, shortness of breath, and patient denies any pain at this time. Patient educated on plan of care for the remainder of the night. Patient verbalized understanding. Bed lowered, call light within reach, and patient will be rounded on every hour and as needed. Cholecystotomy drain in place and draining. Martin catheter draining as well. Will continue to monitor.
[2019-03-17] MEDS: IPRATROPIUM BROM 0.5 MG/2.5ML INH SOL NEB SCH ×6 (02:17→22:08)
[2019-03-17] MEDS: ALBUTEROL SULF 2.5 MG/0.5ML(0.5%) NEB SOLN NEB SCH ×6 (02:17→22:08)
[2019-03-17 05:00] VITALS: BP 129/75
--- NOTE | 2019-03-17 05:00 | NUR ---
Martin not draining per FLAT CUTTER. Per FLAT CUTTER Martin had to be readjusted and began to drain properly. Patient stated relief. Educated patient on utilizing call light for any further discomfort. Martin inspected and draining properly at this time. Will continue to monitor.
[2019-03-17] MEDS: metroNIDAZOLE 500MG/100ML 100 ML IV SCH ×3 (05:35→21:30)
[2019-03-17] MEDS: InsuLIN REG 1unit/0.01ml Soln (100units/ml) SC SCH ×4 (06:22→22:00)
[2019-03-17] MEDS: ACCU-CHEK COMFORT CURVE STRIP VI SCH ×4 (06:22→22:19)
[2019-03-17 06:41] LABS: Basophils # (auto) 0 uL; Basophils % (auto) 0.6 % (0.0-2.0); Eosinophils # (auto) 0.2 uL; Eosinophils % (auto) 2.5 % (0.0-7.0); Hematocrit 35.6 % (41.0-53.0); Hemoglobin 12.3 g/dL (13.5-17.5); Lymphocytes # (auto) 1.6 uL; Lymphocytes % (auto) 21.2 % (10.0-50.0); Mean Corpuscular Hemoglobin 31.5 pg (28.0-32.0); Mean Corpuscular Hgb Conc. 34.5 g/dL (32.0-36.0); Mean Corpuscular Volume 91.3 fL (80.0-100.0); Monocytes # (auto) 0.6 uL; Monocytes % (auto) 7.8 % (0.0-12.0); Neutrophils # (auto) 5.1 uL; Neutrophils % (auto) 67.9 % (37.0-80.0); Platelet Count (auto) 216 10^3/uL (140-450); White Blood Cell 7.6 10^3/uL (4.4-10.8)
[2019-03-17 06:55] LABS: Albumin 2.3 g/dL (3.4-5.0); Calcium 8.9 mg/dL (8.5-10.1); Potassium 3.9 mmol/L (3.5-5.1)
[2019-03-17 06:59] LABS: BUN/Creatinine Ratio 32.4
[2019-03-17 07:01] LABS: Bilirubin, Total 1.2 mg/dL (0.2-1.0); Total Protein 7.4 g/dL (6.4-8.2)
[2019-03-17 09:00] VITALS: BP 137/67
[2019-03-17] MEDS: ATORVASTATIN 20 MG TAB PO SCH (10:00)
[2019-03-17] MEDS: ASPirin-EC 81 mg tab PO SCH (10:00)
[2019-03-17] MEDS: ATENOLOL 25 MG TAB PO SCH (10:00)
--- NOTE | 2019-03-17 10:30 | NUR ---
AT BEDSIDE STATES SHE HAS AN ACCEPTING PHYSICIAN AND A BED FOR PATIENT AT [facility]. SHE IS UNABLE TO TELL ME THE PHYSICIANS NAME OR BED NUMBER. DR Connie ROBLES AT BEDSIDE DISCUSSING THIS TRANSFER
--- NOTE | 2019-03-17 10:34 | NUR ---
SPOKE TO DAUGHTER STAR WHO GAME ME A PHONE NUMBER TO SETH AT [facility] [phone]. SHE SAID SETH WILL AHVE THE INFORMATION FOR ACCEPTING PHYSICIAN AND BED NUMBER. I GAVE THIS INFORMATION TO CLINICAL EXERCISE PHYSIOLOGIST CAMPOS.
[2019-03-17] MEDS: PANTOPRAZOLE 40 MG/10 ML VIAL INJ IV SCH (10:37)
[2019-03-17] MEDS: SODIUM CHLORIDE 0.9% 1,000 ML IV SCH ×2 (10:37→20:15)
--- NOTE | 2019-03-17 10:39 | NUR ---
I called [facility] and had to leave message since they have the recording on (this happens when they are very busy). await response
--- NOTE | 2019-03-17 11:16 | NUR ---
faxed transfer packet to [facility]. Sophie from [facility] called back and I informed her that family member stated there was an accepting MD at [facility]. Sophie stated she informed daughter to contact [facility] to initiate transfer process. I also informed primary RN Grisel that pt would be responsible for transportation cost since pt is medicare and transfer if per family request
[2019-03-17] MEDS: cefTRIAXone 1GM/50ML D5W 50 ML IV SCH (11:22)
[2019-03-17 13:00] VITALS: BP 124/60
[2019-03-17] MEDS ORDERED: HYDROcodone-ACET 5/325MG TAB PO PRN (13:15)
--- NOTE | 2019-03-17 16:35 | NUR ---
BROUGHT MEDICARE CARD. I CALLED LEFT A MESSAGE FOR TARA THAT I HAVE THE CARD INFORMATION.
--- NOTE | 2019-03-17 16:37 | NUR ---
ASLO AWARE THAT MEDICARE DOES NOT PAY FOR TRANSPORTATION WHEN ITS A FAMILY REQUEST TO TRANSFER PATIENT.
--- NOTE | 2019-03-17 16:40 | NUR ---
PAGED OVEN BUILDER SUPERVISOR CAR AND YARD RONNIE TO ASK HER WHAT NUMBER TO FAX THE MEDICARE CARD TO AT [facility]
[2019-03-17 17:00] VITALS: BP 134/66
[2019-03-17 21:35] VITALS: BP 109/66
[2019-03-18] MEDS: IPRATROPIUM BROM 0.5 MG/2.5ML INH SOL NEB SCH ×7 (02:07→22:03)
[2019-03-18] MEDS: ALBUTEROL SULF 2.5 MG/0.5ML(0.5%) NEB SOLN NEB SCH ×7 (02:07→22:03)
[2019-03-18 03:31] VITALS: BP 109/66
--- NOTE | 2019-03-18 04:35 | NUR ---
SPOKE WITH MIKE FROM TRANSFER SERVICES FROM [facility]. PROVIDED A QUICK UPDATE REGARDING PATIENT. WAS INFORMED THAT MD'S WOULD NEED TO GET IN TOUCH IN ORDER TO FACILITATE TRANSFER TO [facility]. THIS WOULD BE DONE LATER ON TODAY. WILL CONTINUE TO MONITOR AND WILL INFORM DAYSHIFT RN.
[2019-03-18 05:00] VITALS: BP 127/70
[2019-03-18] MEDS: metroNIDAZOLE 500MG/100ML 100 ML IV SCH ×2 (05:38→15:15)
[2019-03-18] MEDS: InsuLIN REG 1unit/0.01ml Soln (100units/ml) SC SCH ×4 (06:15→22:00)
[2019-03-18] MEDS: ACCU-CHEK COMFORT CURVE STRIP VI SCH ×4 (06:15→22:00)
[2019-03-18] MEDS: SODIUM CHLORIDE 0.9% 1,000 ML IV SCH ×2 (06:15→17:13)
--- NOTE | 2019-03-18 07:26 | NUR ---
AWAKE ALERT ORIENTED TIMES 4 DENIES ANY PAIN OR NAUSEA AT THIS TIME. NO SIGNS OF DISTRESS. PATIENT AWAITING TRANSFER [place] [facility]
--- NOTE | 2019-03-18 08:47 | NUR ---
Spoke to Cesia at [facility] and she stated they are still trying to get an attending MD. Grisel, primary RN stated that family is going to pay for transportation. Amr's phone # given to Grisel to give to family to call with credit care information.
[2019-03-18 09:00] VITALS: BP 111/64
[2019-03-18] MEDS: cefTRIAXone 1GM/50ML D5W 50 ML IV SCH (09:51)
[2019-03-18] MEDS: ATENOLOL 25 MG TAB PO SCH (10:00)
[2019-03-18] MEDS: PANTOPRAZOLE 40 MG/10 ML VIAL INJ IV SCH (10:00)
[2019-03-18] MEDS: ASPirin-EC 81 mg tab PO SCH (10:29)
[2019-03-18] MEDS: ATORVASTATIN 20 MG TAB PO SCH (10:29)
--- NOTE | 2019-03-18 12:16 | NUR ---
Nutrition Follow-up Notes Wt.: 66.9 kg Pt. endorses excellent appetite and good tolerance to clear liquid diet without reported GI distress at this time. Pt. normally consumes Ensure Enlive at home "about 1-2 times a day when I don't have much appetite." Advised pt. that Glucerna is recommended due to history of DM. Discussed the importance of BG/DM management through CCHO counting. Pt. and family at bedside verbalized understanding and appreciation for diet overview/verbal education. Est. Needs: Est. Needs: Unchanged from previous assessment. 1650 kcal to 1950 kcal (25-30 kcal/kgBW), 65 gms to 78 gms pro (1.0-1.2 gms/kgBW). Will continue to monitor pertinent labs and reassess nutrient need prn Labs: BUN 22H, AST 39H, ALB 2.3L Skin: Reno 18, mod risk, intact GI: x 1 emesis yesterday s/p procedure per pt family. No symptoms reported today. Last BM this morning x 1 per pt, loose. PES: 1) Altered nutrition related lab values r/t acute/chronic medical medical condition AEB hyperglycemia,hyperchloremia, elev. AST, ALP and severe hypoalbuminemia (ongoing) 2) Increased nutrient needs r/t current/chronic medical status AEB intubated, sedated, severe hypoalbunmenia, NPO (resolved) Monitor: GI function, weights, skin integrity, labs. F/U: MR 3-5 days Rec. 1) When medically able, resume PO diet (CCHO/Cardiac diet) for optimal chronic disease management. 2) If PO intake <75% by following assessment, consider adding Glucerna BID w/meals.
[2019-03-18 13:13] VITALS: BP 134/79
--- NOTE | 2019-03-18 13:52 | NUR ---
Transfer: Dr. Valencia stated accepting MD at [facility] is a Dr. Juan. I spoke to Sophie at [facility] transfer center [phone] and she too verified accepting MD. She stated we are now waiting for a bed for pt. [facility] called and they said pt's family can call in with information for payment of transport to [facility]. Informed Grisel primary RN of need for family to call with credit card information as to no delay proceedings of transfer. I also informed Grisel to make sure all chart/cds are copied for transfer
--- NOTE | 2019-03-18 14:04 | NUR ---
PATIENTS CALLED [facility] SHE WAS TOLD TO HAVE THE HOSPITAL TO CALL FOR ESTIMATED RG OF TRANSPORT. I SPOKE TO TARA SHE SAID TO HAVE PATIENT CALL BACK AND ASK FOR BOLA. PATIENTS INFORMED. SHE SAID SHE WILL CALL [facility] AGAIN.
--- NOTE | 2019-03-18 14:50 | NUR ---
Grisel primary RN called me and stated pt's was quoted $4000.00 transport fee to [facility]. informed Grisel that they cannot afford to pay this amt. Grisel told me that they were told it may be $1500 to $2000 originally, I do not know who told them that amt. Informed Grisel to call Dr. Valencia and let him know
--- NOTE | 2019-03-18 15:08 | NUR ---
BOLA FROM [facility] CALLED SAID SHE PROCESSED THE CREDIT CARD BUT NEEDS THE ROOM NUMBER. I TOLD HER WE DON'T HAVE A ROOM NUMBER YET. SHE SAID SHE WOULD VOID THE CREDIT CARD PAYMENT AND ONCE WE HAVE A ROOM NUMBER HAVE THE CALL BACK TO ACTIVATE THE ACCOUNT. BOLA SAID SHE WOULD CALL THE AND LET HER KNOW WELL.
--- NOTE | 2019-03-18 15:38 | NUR ---
Grisel rowan RN called me and said family can pay for transport. We are still waiting for bed at [facility]
[2019-03-18 16:50] VITALS: BP 115/76
--- NOTE | 2019-03-18 19:30 | NUR ---
Opening Shift Note Assumed care of patient, awake and alert. No S/S of distress/SOB or pain. Cholecystostomy dressing dry and intact draining to dark green output. Martin patent and draining to light dashawn urine. at bedside. Instructed on POC and to call for assist PRN, patient verbalized understanding, call light within reach, will continue to monitor for changes Q1hr and PRN.
--- NOTE | 2019-03-18 19:49 | NUR ---
Transfer Center called and spoke to Zoran, per Zoran, [facility] has bed available already and patient will be going to [facility] [address]. Updated at bedside
--- NOTE | 2019-03-18 20:30 | NUR ---
RAJNI called and informed primary RN that ETA of ambulance in 45 minutes
--- NOTE | 2019-03-18 20:50 | NUR ---
Called and spoke to Zoran of Transfer Center and updated on ETA of [facility]
--- NOTE | 2019-03-18 20:52 | NUR ---
Gave report to JOHNNA Low at [facility]
[2019-03-18 21:02] VITALS: BP 132/56
--- NOTE | 2019-03-18 21:40 | NUR ---
Pt being trans to another hosp Order obtained for [place] MARIANNE SOTO [place] [facility] [place] Report called/given to RN Maranda. Report given to EMS transport team. Medication reconciliation form completed and copy given to [facility] staff. Transported via gurney along with copied chart and imaging films/disk and all personal belongings. No distress noted on time of departure. at bedside aware of room number,patient and verbalized understanding. NOTE:
--- NOTE | 2019-03-19 10:18 | NUR ---
assessment Patient is a 79 year old male who is alert and oriented. Patients cognitive abilities are intact. Prior to admission patient lived home with family and functioned with assistance. Per patient he will agree to transfer to [facility]. Patient informed me his PCP is at the [facility]. I informed patient he has a right to speak to a social sciences lecturer regarding all care. I informed patient he has a right to participate in any and all discharge planning. Patient does not have a POA and advanced directive. I have offered patient information on POA and advanced directives. I informed the patient the advantages and benefits of having an Advanced Directive. Patient verbalized understanding and agreed to discharge plan. Addendum: 03/19/19 at 1021 by Namita SOTO Amended: Links added. Addendum: 03/19/19 at 1022 by Namita SOTO Late entry Note if for yesterday 03/18/19
== END 2019-03-18 21:40 | disposition short-term general hospital (02) | DRG 871 ==
LOC: ER 08:53 → TELE 08:54 → ICU WEST 18:40 → TELE-WESTW 03-14 23:18
PROVIDERS: ADMIT Nurse Practitioner Acute Care; ATTEND Family Medicine
PROC: 3E033XZ Introduction of Vasopressor into Peripheral Vein, Percutaneous Approach (ICD-10-PCS; 2019-03-11)
PROC: 5A1945Z Respiratory Ventilation, 24-96 Consecutive Hours (ICD-10-PCS; 2019-03-11)
PROC: 0BH17EZ Insertion of Endotracheal Airway into Trachea, Via Natural or Artificial Opening (ICD-10-PCS; 2019-03-11)
PROC: 02HV33Z Insertion of Infusion Device into Superior Vena Cava, Percutaneous Approach (ICD-10-PCS; 2019-03-11)
PROC: 0JH63XZ Insertion of Tunneled Vascular Access Device into Chest Subcutaneous Tissue and Fascia, Percutaneous Approach (ICD-10-PCS; 2019-03-11)
PROC: 05HY33Z Insertion of Infusion Device into Upper Vein, Percutaneous Approach (ICD-10-PCS; 2019-03-11)
PROC: 0F9430Z Drainage of Gallbladder with Drainage Device, Percutaneous Approach (ICD-10-PCS; principal; 2019-03-13)
DX: A41.50 Gram-negative sepsis, unspecified (principal); I21.A1 Myocardial infarction type 2; K83.1 Obstruction of bile duct; J96.01 Acute respiratory failure with hypoxia; R65.21 Severe sepsis with septic shock; E44.0 Moderate protein-calorie malnutrition; K81.0 Acute cholecystitis; T82.524A Displacement of infusion catheter, initial encounter; E11.65 Type 2 diabetes mellitus with hyperglycemia; E78.5 Hyperlipidemia, unspecified; I11.0 Hypertensive heart disease with heart failure; E78.00 Pure hypercholesterolemia, unspecified; K74.60 Unspecified cirrhosis of liver; M19.90 Unspecified osteoarthritis, unspecified site; K82.8 Other specified diseases of gallbladder; Y83.8 Other surgical procedures as the cause of abnormal reaction of the patient, or of later complication, without mention of misadventure at the time of the procedure; Y92.89 Other specified places as the place of occurrence of the external cause; Z68.25 Body mass index [BMI] 25.0-25.9, adult; I50.9 Heart failure, unspecified
CPT/HCPCS: 31500; 36556; 36571; 47490; 96365; 99291; C1788; 10022; 36415; 36600; 71045; 71046; 71275; 74176; 74181; 76705; 76942; 80048; 80053; 82150; 82805; 82962; 83605; 83690; 83735; 83880; 84484; 84550; 85025; 85379; 85610; 85730; 86141; 86850; 86900; 86901; 87040; 87070; 87077; 87081; 87186; 87205; 93005; 93306; 93970; 94002; 94003; 94640; A4618; C1729; C1751; C9113; G0378; J0330; J0696; J1815; J2250; J2405; J2543; J2704; J3490